=== PATIENT | female | born 1990 ===

== ENCOUNTER 2017-11-12 22:45 | Inpatient (IN) | payer BC ==
[2017-11-12] MEDS ORDERED: DiphenhydrAMINE 50 mg/ml Inj IVP ONE (23:42)
[2017-11-12] MEDS ORDERED: Dextrose 5%/Lactated Ringer's 1,000 ML IV SCH (23:45)
[2017-11-12] MEDS ORDERED: Nalbuphine 20 mg/ml Inj (1 ml) IVP PRN (23:45)
--- NOTE | 2017-11-13 00:05 | OBHP ---
Datetime: 11/12/2017 23:44 IP Adm Impression: Term, intrauterine ; No Active Labor; Intact Membranes IP Admit Plan: Admit to unit Admit Comment, IP Provider: 27 y.o. , LMP 02/06/17, EAMON 11/13/17, EGA 39w 6d by sono 03/31/17 at 7 w 1d, reports onset of Ctx 11/11/17; stronger today 11/12/17, until 2030 hours started to occur every 6 minutes with pain scale 4/10. passed mucous plug 11/09/17; after ovvice visit. (+) AFM; denies LOF, VB. care: Dr. 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 PMH: denies PSH: denies NKDA Meds: PNV Soc Hx: denies tobacco, illicit drug or EtOH use. Maarried x 3 years. 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 Fam Hx: MOther alive 55 y.o. Father alive 57 y.o. , both, no med issues. no known fam H/O cancer P.E.: as above. [place], in NAD. Awake, alert, oriented to time, person and place. Pleasant and c ooperative. and older woman also present Assessment: 27 y.o. P0, 39w 6d, latent phase of laobr. Category 1 tracing. H/O GBS UTI - treated. PMD has concern for LGA. Patient is clinically stable Plan: 1) Admit 2) NPO 3) IVFS 4) Admission labs 5) Continuous EFM 6) OB sono in AM 7) Pain medis, upon request - as per, and discussed with, Dr. Cortes. Pelvic Type - PN: Adequate Extremities - PN: Normal Abdomen - PN: Normal Back - PN: Normal Breast - PN: Not Done Lungs - PN: Normal Heart - PN: Normal Thyroid - PN: Normal Neurologic - PN: Normal General - PN: Normal Weight - Estimated: 7 1/4 lbs Presentation-Admit: Vertex FHR - Baseline A Provider: 140 Membranes, Provider: Intact Contraction Comments Provider: 6-8 Comments, ACOG Physical Exam: labs: 04/08/17: A(+); GBS UTI - treated; Pap- neg; HIV(-); GC/Chl -/-; Hgb AA; H/H 11.7/35.4; Rubella- i mmune; RPR- NR; HBsAg(-). 08/16/17: GCT 113; H/H 11.7/35.4 09/23/17: GBS(-); RPR-NR; GC/Chl -/-; HIV(-) Abdomen: Gravid. Soft. non tender. Fundal height 36cm All other systems reviewed and are negative Gestation - Est Wks by US: 39w 6d IP Hx Assessment: The History has been Reviewed and is Current EGA AdmitDate IP: 40.0 Vital Signs Provider: Reviewed; Within Normal Limits IP Indication for Induction: Not Applicable IP Chief Complaint: Uterine contractions NICHD Variability Prov Fetus A: Moderate 6-25bpm FHR Category Provider Fetus A: Category I NICHD Decel Fetus A IP Provider: None Dilatation, Provider: 2-3 Effacement, Provider: 80 Station, Provider: 0 Genitourinary Exam: Normal DTRs - PN: Not Done
[2017-11-13 00:35] LABS: BASO % 0.3 % (0.0-2.0); EOS # 0.1 K/uL (0.0-0.7); EOS % 0.6 % (0.0-4.0); HEMOGLOBIN 12.4 g/dL (11.0-16.0); LYMPH # 3.1 K/uL (1.0-4.3); MEAN CELL VOLUME 91.4 fL (81.0-99.0); MEAN CORPUSCULAR HEMOGLOBIN 30.5 pg (27.0-31.0); MEAN CORPUSCULAR HGB CONC 33.4 g/dL (33.0-37.0); MEAN PLATELET VOLUME 8.5 fL (7.2-11.7); MONO # 0.9 K/uL (0.0-0.8); MONO % 8.3 % (0.0-10.0); NEUT # 7.3 K/uL (1.8-7.0); NEUT % 63.8 % (50.0-75.0); RBC 4.06 Mil/uL (3.80-5.20); WHITE BLOOD COUNT 11.4 K/uL (4.8-10.8)
[2017-11-13 00:38] LABS: SQUAMOUS EPITHIAL 1 /hpf (0-5); URINE BILIRUBIN NEGATIVE (NEGATIVE); URINE BLOOD 1+ (NEGATIVE); URINE CLARITY Clear (Clear); URINE COLOR Straw (YELLOW); URINE GLUCOSE (UA) NORMAL (Normal); URINE LEUKOCYTE ESTERASE NEG Leu/uL (Negative); URINE PROTEIN NEGATIVE (NEGATIVE); URINE UROBILINOGEN NORMAL mg/dL (0.2-1.0)
[2017-11-13 00:50] LABS: ALBUMIN 3.4 g/dL (3.5-5.0); ALT/SGPT 15 U/L (9-52); AST/SGOT 27 U/L (14-36); BLOOD UREA NITROGEN 7 mg/dL (7-17); GFR AFRICAN-AMERICAN > 60; GFR NON-AFRICAN AMERICAN > 60
[2017-11-13] MEDS: Lactated Ringer's 1,000 ML IV SCH ×3 (00:50→15:30)
[2017-11-13] MEDS ORDERED: Bupivacaine HCl 0.25% PF (30 ml) Inj ONE (08:56)
[2017-11-13] MEDS ORDERED: Fentanyl/Bupivacaine HCl 250 ML EPI ONE (08:56)
[2017-11-13] MEDS: AMPicillin 1 GM in Sodium Chloride 0.9% 100 ML IVPB SCH ×2 (09:19→14:50)
--- NOTE | 2017-11-13 09:33 | US ---
PROCEDURE: OB Pelvic Ultrasound HISTORY: R/O LGA LMP: 02/06/2017 COMPARISON: None available. FINDINGS: UTERUS: Single live intrauterine fetus in cephalic presentation. Heart rate: 158 bpm. BPD: 8.55 cm corresponding to 34 weeks and 3 days of gestational age. HC: 32.84 cm corresponding to 37 weeks and 2 days of gestational age. AC: 32.10 cm corresponding to 36 weeks and 0 days of gestational age. FL: 7.38 cm corresponding to 37 weeks and 5 days of gestational age. age (Ultrasound estimated): 36 weeks and 3 days Nancy-gestational hemorrhage: None. Date of delivery (Ultrasound estimated) : 11/13/2017 Placenta is fundal. Amniotic fluid index is 6.61. FREE FLUID: None. OTHER FINDINGS: None. IMPRESSION: Single live intrauterine fetus in cephalic presentation with mean gestational age of 36 weeks and 3 days. The estimated date of delivery by ultrasound is 11/13/2017. Amniotic fluid index is 6.61, low normal. Placenta is fundal.
[2017-11-13] MEDS ORDERED: Oxytocin 30 UNIT 30 UNITS/500 ML BAG IV ONE (16:04)
[2017-11-13] MEDS ORDERED: Oxytocin 30 UNIT 30 UNITS/500 ML BAG IV SCH (16:15)
[2017-11-13] MEDS ORDERED: Oxytocin 20 units in LR 0 ML IV ONE (17:13)
[2017-11-13] MEDS ORDERED: Lidocaine 2% MPF (5 ml) Inj ONE (17:32)
[2017-11-13] MEDS: Oxycodone/Acetaminophen 5/325 mg Tab PO PRN (21:36)
[2017-11-14] MEDS: Oxycodone/Acetaminophen 5/325 mg Tab PO PRN ×4 (04:47→21:13)
[2017-11-14 07:33] LABS: BASO % 0.2 % (0.0-2.0); EOS # 0.2 K/uL (0.0-0.7); EOS % 0.8 % (0.0-4.0); LYMPH # 3.1 K/uL (1.0-4.3); LYMPH % 15.7 % (20.0-40.0); MEAN CELL VOLUME 90.5 fL (81.0-99.0); MEAN CORPUSCULAR HEMOGLOBIN 31.5 pg (27.0-31.0); MEAN CORPUSCULAR HGB CONC 34.9 g/dL (33.0-37.0); MEAN PLATELET VOLUME 8.4 fL (7.2-11.7); MONO # 1.4 K/uL (0.0-0.8); NEUT # 15.1 K/uL (1.8-7.0); NEUT % 76.3 % (50.0-75.0); RBC 3.27 Mil/uL (3.80-5.20); RED CELL DISTRIBUTION WIDTH 13.2 % (11.5-14.5)
[2017-11-14 07:40] LABS: WHITE BLOOD COUNT 19.8 K/uL (4.8-10.8)
[2017-11-14 07:41] LABS: HEMOGLOBIN 10.3 g/dL (11.0-16.0)
--- NOTE | 2017-11-14 16:48 | OBDS ---
DELIVERY PERSONNEL Delivery Doctor: Brooklyn Cortes MD Case Worker: Pat Vance RN Anesthesiologist: dr. gilmore MATERNAL INFORMATION Delivery Anesthesia: Local; Epidural Medications in Delivery: pitcoin Estimated Blood Loss (ml): 300 Placenta Cultured: No Maternal Complications: None RN Comments: episiotomy repaired by . Lidocaine given to MD for episiotomy repair LABOR SUMMARY EDC: 11/13/2017 00:00 No. Babies in Womb: 1 Attempted: No Labor Anesthesia: Epidural LABOR INFORMATION Onset of Labor: 11/13/2017 10:45 Complete Dilatation: 11/13/2017 17:10 Other Ripening Agents: n/a Oxytocin: Augmentation Group B Beta Strep: Positive (Annotations: on 04/10/2017 in urine) Antibiotics # of Doses: 2 Antibiotics Time of Last Dose: 1500 MEMBRANES Membranes Rupture Method: Spontaneous Rupture of Membranes: 11/13/2017 15:32 Length of Rupture (hrs): 2.05 Amniotic Fluid Color: Clear Amniotic Fluid Amount: Moderate Amniotic Fluid Odor: Normal STAGES OF LABOR Stage 1 hrs: 6 Stage 1 min: 25 Stage 2 hrs: 0 Stage 2 min: 25 Stage 3 hrs: 0 Stage 3 min: 3 Total Time in Labor hrs: 6 Total Time in Labor min: 53 VAGINAL DELIVERY Episiotomy: Right Mediolateral Laceration Extension: N/A Laceration Type: None Laceration Repair: Not Applicable Initial Vag Sponge Count: 10 Final Vag Sponge Count: 20 Initial Vag Sharps Count: 0 Final Vag Sharps Count: 5 Sponge Count Correct: Yes Sharps Count Correct: Yes BABY A INFORMATION Infant Delivery Date/Time: 11/13/2017 17:35 Method of Delivery: Vaginal Born in Route : No : N/A Forceps: N/A Vacuum Extraction: N/A Shoulder Dystocia : No SHOULDER DYSTOCIA BABY A Infant Delivery Date/Time: 11/13/2017 17:35 PRESENTATION/POSITION BABY A Presentation: Cephalic Cephalic Presentation: Vertex Vertex Position: Left Occipital Anterior Breech Presentation: N/A PLACENTA INFORMATION BABY A Placenta Delivery Time : 11/13/2017 17:38 Placenta Method of Delivery: Spontaneous Placenta Status: Delivered SCORES BABY A Heart Rate 1 min: >100 bpm Resp Effort 1 min: Good Cry Reflex Irritability 1 min: Cough or Sneeze or Pulls Away Muscle Tone 1 min: Active Motion Color 1 min: Body [place], Extremities Blue Resuscitation Effort 1 min: N/A SCORE 1 MIN: 9 Heart Rate 5 min: >100 bpm Resp Effort 5 min: Good Cry Reflex Irritability 5 min: Cough or Sneeze or Pulls Away Muscle Tone 5 min: Active Motion Color 5 min: Body [place], Extremities Blue SCORE 5 MIN: 9 INFANT INFORMATION BABY A Gestational Age at Delivery: 40.0 Gestational Status: Term Infant Outcome : Liveborn Condition : Stable Sex: Male IDENTIFICATION/MEDS BABY A ID Band Number: [id number] ID Band Location: Left Leg; Left Arm Sensor Applied: Yes Sensor Number: [id number] Sensor Location : Cord Clamp Vitamin K Given : Not Given Erythromycin Given: Not Given WEIGHT/LENGTH BABY A Infant Birthweight (gms): 2935 Weight (lb): 6 Weight (oz): 7 Length Inches: 19.50 Infant Length cms: 49.5 CORD INFORMATION BABY A No. Cord Vessels: 3 Nuchal Cord : N/A Cord Blood Taken: Yes Infant Suction: Mouth; Nose ASSESSMENT BABY A Infant Complications: None Physical Findings at Delivery: Within Normal Limits Infant Respirations: Appears Normal Shoe Cleaner/ALS Called : Yes Care By: /lilian quintero rn Transferred To: Remains with Mother
--- NOTE | 2017-11-14 16:51 | OBPPN ---
Datetime: 11/14/2017 16:45 PP Pain Prov: Within normal limits PP Breasts Prov: Normal PP Heart Prov: Normal PP Lungs Prov: Normal PP Abdomen/Uterus Prov: Normal PP Lochia Prov: Normal PP Vulva/Perineum Prov: Normal PP CVA Tenderness Prov: Normal PP Extremities Prov: Normal PP C/S Incision Prov: Normal PP Progress Prov: Normal PP Impression Prov: Normal progression PP Plan Prov: Continue present management PP Progress Note Prov: PPD #1 No C/O VS Stable Abdomen Soft HOF -2 Perineum Intact P: Home in AM if stable IP PP Procedures: None
--- NOTE | 2017-11-14 16:53 | OBDCSUM ---
Datetime: 11/14/2017 16:48 Discharged to, Provider: Home Follow up at, Provider: Dr Sebastian Morris Instr Activity: Normal activity Disch Instr Diet: Regular Discharge Instructions, Provider: Routine instructions given Discharge Diagnosis, Provider: Term Delivered Discharge Time: 11/15/2017 10:00 Follow up in weeks, Provider: 4 weeks Disch Referrals: None Contraception discussed, Prov: Yes
[2017-11-15] MEDS: Oxycodone/Acetaminophen 5/325 mg Tab PO PRN (07:53)
[2017-11-15 08:23] VITALS: BP 99/60; PULSE 72; RESP 18; TEMP 98; O2SAT 99
== END 2017-11-15 16:20 | disposition home or self-care (01) | DRG 775 ==
LOC: C.EROB 22:45 → C.4D 23:38 → C.4M 11-13 20:45
PROVIDERS: ADMIT Obstetrics & Gynecology Gynecology; ATTEND Obstetrics & Gynecology Gynecology
PROC: 10E0XZZ Delivery of Products of Conception, External Approach (ICD-10-PCS; principal; 2017-11-13)
PROC: 0W8NXZZ Division of Female Perineum, External Approach (ICD-10-PCS; 2017-11-13)
DX: O36.63X0 Maternal care for excessive fetal growth, third trimester, not applicable or unspecified (principal); O99.824 Streptococcus B carrier state complicating childbirth; Z3A.39 39 weeks gestation of pregnancy; Z37.0 Single live birth